=== PATIENT | female | born 1960 | race Caucasian/White ===

== ENCOUNTER 2018-12-06 16:45 | Inpatient (IN) ==
[2018-12-06 17:14] LABS: BASO# 0.05 X1000 (0.0-0.2); BASO% 0.6 % (0.0-0.8); EOS# 0.17 X1000 (0.0-0.7); EOS% 2.2 % (0.0-10.0); HEMATOCRIT 39.6 % (37.0-47.0); HEMOGLOBIN 13.3 g/dL (12.0-16.0); IMM GRAN# 0.02 X1000 (0.0-0.04); IMM GRAN% 0.3 % (0.0-0.5); LYMPH# 1.83 X1000 (1.2-3.4); LYMPH% 23.6 % (20.5-51.1); MCH 30.5 PG (27-31); MCHC 33.6 g/dL (33-37); MCV 90.8 FL (81-99); MONO# 0.58 X1000 (0.11-0.59); MONO% 7.5 % (1.7-9.3); MPV 9.6 FL (7.4-10.4); NEUT# 5.09 X1000 (1.4-6.5); NEUT% 65.8 % (42.2-75.2); PLT 184 X1000 (130-400); RBC 4.36 XMIL (4.2-5.4); RDW 13.2 % (11.5-14.5); WBC 7.74 X1000 (4.8-10.8)
[2018-12-06 17:22] LABS: INR 0.91; PROTIME 12.4 Seconds (11.0-16.0); PTT 27.3 Seconds (22.3-41.8)
--- NOTE | 2018-12-06 17:29 | ED EKG INTERP ---
This chart was entered by Jaki Simmons Scribe, acting as scribe for Kolby Vaughan MD. EKG Interpretation - EKG Time of EKG reading by physician:: 17:19 EKG Read and Signed by:: Kolby Vaughan EKG Interpretation (*Must complete 3 of following elements*): Abnormal Rate: 67 Rhythm: NSR [place]: normal QRS: normal [place] Interval: normal ST Wave: non-specific ST changes Comments: Artifact present. -Dr. Vaughan Attestation - Physician/ SABA Attestation Patient care was provided by Advanced Practice Provider:: No The physician spent face to face time with patient:: No Advanced Practice Provider documentation review:: Supervising physician onsite and consulted in the evaluation and care of this patient. The physician did not have a face to face encounter with the patient. This chart was documented by the indicated scribe, (Jaki Simmons Scribe) and accurately reflects the services I performed and decisions made by Clement so Kent A., MD, as attested by the provider's signature.
[2018-12-06 17:31] LABS: URINE SOURCE CLEAN CATCH
[2018-12-06 17:33] LABS: AGAP 11; ALB/GLOB RATIO 1.7; ALBUMIN 4.4 g/dL (3.5-5.0); ALKALINE PHOSPHATASE 99 U/L (32-104); AMYLASE 51 U/L (20-200); BUN 15 mg/dL (8-22); CALCIUM 9.5 mg/dL (8.8-10.2); CHLORIDE 103 mmol/L (98-107); COSMO 286; CREATININE 0.8 mg/dL (0.5-0.9); ESTIMATED GFR > 60; GLUCOSE 105 mg/dL (70-104); GOT 26 U/L (10-30); GPT 27 U/L (10-36); LIPASE 42 U/L (13-60); POTASSIUM 3.8 mmol/L (3.5-5.1); SODIUM 143 mmol/L (136-145); TCO2 29 mmol/L (25-35); TOTAL BILIRUBIN 0.95 mg/dL (0.20-1.00)
[2018-12-06 17:35] LABS: BILIRUBIN URINE NEGATIVE (NEGATIVE); BLOOD URINE MODERATE (NEGATIVE); COLOR YELLOW; GLUCOSE URINE NEGATIVE (NEGATIVE); KETONE URINE NEGATIVE (NEGATIVE); LEUKOCYTES URINE SMALL (NEGATIVE); NITRITE URINE NEGATIVE (NEGATIVE); PH URINE 5.5; PROTEIN URINE NEGATIVE (NEGATIVE); SP GRAVITY URINE 1.018; TURBIDITY URINE CLEAR (CLEAR); UROBILINOGEN URINE NORMAL (NORMAL)
[2018-12-06 17:36] LABS: UR EPITHELIAL CELLS <10 /HPF (<10); URINE BACTERIA NEGATIVE /HPF; URINE WBC <10 /HPF (<10)
[2018-12-06 17:47] LABS: UR AMPHETAMINES QUAL NONE DETECTED (NONE DETECT); UR BARBITUATES QUAL NONE DETECTED (NONE DETECT); UR BENZODIAZEPIN QUAL NONE DETECTED (NONE DETECT); UR CANNABINOIDS QUAL NONE DETECTED (NONE DETECT); UR COCAINE QUAL NONE DETECTED (NONE DETECT); UR METHADONE QUAL NONE DETECTED (NONE DETECT); UR OPIATES QUAL NONE DETECTED (NONE DETECT); UR OXYCODONE QUAL NONE DETECTED (NONE DETECT); UR PCP QUAL NONE DETECTED (NONE DETECT)
--- NOTE | 2018-12-06 18:25 | EKG Report ---
Test Performed on : 12/06/2018 5:02:16 PM Test Reason : NUMBNESS Blood Pressure : / mmHG Vent. Rate : 067 BPM Atrial Rate : 067 BPM P-R Int : 148 ms QRS Dur : 084 ms QT Int : 404 ms P-R-T Axes : 035 019 063 degrees QTc Int : 426 ms Normal sinus rhythm. Nonspecific T wave abnormality Abnormal ECG When compared with ECG of 21-APR-2015 08:29, Nonspecific T wave abnormality now evident in Inferior leads Unconfirmed Result
--- NOTE | 2018-12-06 19:57 | Diag Imaging Result Doc PS360 ---
EXAM: CT HEAD W/O CONTRAST - 12/06/2018 HISTORY: NUMBNESS TECHNIQUE: CT head without contrast COMPARISON: 10/04/2013 FINDINGS: There is no evidence of intracranial hemorrhage, mass effect, midline shift, or hydrocephalus. There is no evidence of infarct, although acute infarcts may not be immediately visible. There is no evidence of skull fracture. Visualized portions of paranasal sinuses and mastoid air cells appear clear. IMPRESSION: No visible acute intracranial abnormality. No hemorrhage or mass effect. This exam was performed using automated exposure control, adjustment of mA or kV according to patient size, and/or use of iterative reconstruction technique. Electronically signed by Adama Peña 12/06/2018 7:54 PM
[2018-12-06] MEDS ORDERED: CATAPRES PO ONE (20:01)
--- NOTE | 2018-12-06 20:31 | PROVIDER DOCUMENTATION ---
This chart was entered by Regina Turcios Scribe, acting as scribe for Be Henry MD. HPI-Neurological Disorder - General Chief Complaint: Numbness Stated Complaint: TONGUE,LIP NUMB,HEAD TIGHTNESS Time Seen by Provider: 12/06/18 17:28 Source: patient Allergies/Adverse Reactions: Patient Allergies Allergy/AdvReac Type Severity Reaction Status Date / Time amoxicillin trihydrate * AdvReac DIARRHEA Verified 12/06/18 20:01 [From Augmentin] fluticasone furoate AdvReac DRY MOUTH Verified 12/06/18 20:02 [From Breo Ellipta] hydrocodone AdvReac NAUSEA/VOMI Verified 12/06/18 20:01 TING phentermine HCl * AdvReac Unknown Verified 12/06/18 20:01 [From Adipex-P] potassium clavulanate * AdvReac DIARRHEA Verified 12/06/18 20:01 [From Augmentin] vilanterol AdvReac DRY MOUTH Verified 12/06/18 20:02 [From Breo Ellipta] Home Medications: Home Medication List Medication Instructions Recorded Confirmed Last Taken Type Aspirin/Acetaminophen/Caffeine 1 tab PO DAILY 10/04/13 10/04/13 10/03/13 21:00 History [Excedrin Migraine] Clonidine HCl 0.1 mg PO QHS 10/04/13 10/04/13 10/03/13 21:00 History Clopidogrel [Plavix] 75 mg PO DAILY 10/04/13 10/04/13 10/03/13 21:00 History Ibuprofen 800 mg PO TID PRN 10/04/13 10/04/13 10/03/13 21:00 History Losartan/Hydrochlorothiazide 1 tab PO DAILY 10/04/13 10/04/13 10/03/13 21:00 History [Losartan-Hctz 50-12.5 mg Tab] Metoprolol [Lopressor] 50 mg PO DAILY 10/04/13 10/04/13 10/03/13 21:00 History Sumatriptan Succinate 25 mg PO DAILY 10/04/13 10/04/13 10/03/13 21:00 History Albuterol Sulfate Inhaler 2 puff INH Q6H PRN PRN #1 inhaler 05/01/18 Unknown Rx [Ventolin Hfa] Azithromycin 250 mg PO DAILY #11 tab 05/01/18 Unknown Rx - History of Present Illness-Neuro Nature of Presenting Problem: 58 yof c/o head tingling, LE weakness, left LE numbness, left arm tingling, lip numbness, tight jaw left side. pt sts felt "groggy" this am, ate lunch and around [id number] everything got "bright," but head didn't hurt. pt sts head is tingling. pt has hx of mini strokes x 3, pt sts last mini stroke, has speech problems. pt has hx of migraines rt sided, htn, copd and kidney problems. pt nonsmoker. pt denies seizure and loc. pt has allergy to hydrocodone, augmenton, phentermine and cigarette smoke. Review of Systems - Adult - REVIEW OF SYSTEMS - ADULT Constitutional: reports: no symptoms reported. denies: fever, fatique, night sweats Eyes: reports: no symptoms reported. denies: decreased vision, blurred vision, double vision Ears, Nose, Mouth & Throat: reports: no symptoms reported Cardiovascular: reports: no symptoms reported Respiratory: reports: no symptoms reported Gastrointestinal: reports: no symptoms reported Genitourinary: reports: no symptoms reported Musculoskeletal: reports: see HPI, muscle weakness (bilat leg weakness). denies: back pain, joint pain, neck pain Integumentary: reports: no symptoms reported Neurological: reports: see HPI, numbness (left le numb,), paresthesia, other (left arm tingling). denies: dizziness/vertigo, headache/migraines, loss of balance, slurred speech, syncope Psychiatric: reports: no symptoms reported Endocrine: reports: no symptoms reported Hematologic/Lymphatic: reports: no symptoms reported Allergic/Immunologic: reports: no symptoms reported All Other Systems: Reviewed and Negative Past History - Adult - PAST MEDICAL HISTORY-ADULT Review of Records: reports: Old Records Reviewed, Nursing Assessment Review, Medications Reviewed, Social history reviewed & non-contributory. Major Childhood Illnesses: reports: denies history Cardiovascular: reports: HTN, hyperlipidemia Respiratory: reports: COPD Gastrointestinal: reports: GERD Obstetrical/Gynecological: reports: denies history Genitourinary: reports: denies history Musculoskeletal: reports: denies history Neurological: reports: TIA Endocrine/Immune: reports: Diabetes Other Conditions: reports: denies history - PRIOR SURGERIES/PROCEDURES Surgical/Procedure History: reports: appendectomy, BTL - IMMUNIZATION STATUS Childhood Immunizations: See Nurse Assessment Flu Vaccine: See Nurse Assessment - FAMILY HISTORY Family History: reviewed, not pertinent - SOCIAL HISTORY Smoking: non-smoker Substance Use: none/never Physical Exam- Neurological - Physical Exam-Neuro Initial Vital Signs Reviewed: Yes General Appearance: appears well, alert, no apparent distress, obese. negative: lethargic, slow to respond, obtunded Eye Exam: bilateral eye: normal inspection, PERRL, EOMI HENMT: normocephalic/atraumatic, moist mucous membranes, normal ENT inspection Head Injury: no evidence of injury. negative: ecchymosis, flap, lacerations Neck: non-tender, full range of motion, supple, normal inspection Respiratory: chest non-tender, lungs clear, normal breath sounds Cardiovascular: normal peripheral pulses, regular rate, rhythm, no edema, no gallop, no JVD, no murmur, other (pt bp 162/124 in er). negative: JVD, bradycardia, tachycardia Abdominal Exam: normal bowel sounds, non tender, soft Lymphatic: no adenopathy Peripheral Pulses: radial (R): 2+, radial (L): 2+ Extremity: normal range of motion, non-tender, normal inspection bread and pastry baker Exam: normal hearing, normal speech, PERRL. negative: abnormal eye position, facial asymmetry, facial droop, facial paresthesias, facial weakness Motor/Sensory: no motor deficit, no pronator drift, sensory deficit. negative: no sensory deficit, pronator drift (R), pronator drift (L), weak motor strength RLE, weak motor strength LLE Neurologic: bread and pastry baker II-XII nml as tested, grossly normal, sensory deficit. negative: no motor/sensory deficits, aphasia, EOM palsy, facial droop, focal weakness, motor weakness Integumentary: normal color, normal turgor, warm/dry Psych/Mental Status: normal mood/affect, normal thought content, normal thought process, oriented x 3 - Glascow Coma Scale Best Eye Response: (4) open spontaneously Best Verbal Response: (5) oriented Best Motor Response: (6) obeys commands Total Glascow Score: 15 Progress - PLAN OF CARE/RESULTS Progress/Plan/Lab Results: Vital Signs - 8 hr 12/06/18 16:53 12/06/18 19:00 12/06/18 19:03 Temperature 97.8 F Pulse Rate 71 Respiratory Rate 18 Blood Pressure 142/105 180/98 162/113 O2 Sat by Pulse Oximetry 98 99 99 Laboratory Results - last 24 hr 12/06/18 12/06/18 12/06/18 17:02 17:02 17:02 WBC 7.74 RBC 4.36 Hgb 13.3 Hct 39.6 MCV 90.8 MCH 30.5 MCHC 33.6 RDW Std Deviation 13.2 Plt Count 184 MPV 9.6 Immature Gran % (Auto) 0.3 Neut % (Auto) 65.8 Lymph % (Auto) 23.6 [place] % (Auto) 7.5 Eos % (Auto) 2.2 Baso % (Auto) 0.6 Immature Gran # (Auto) 0.02 Neut # (Auto) 5.09 Lymph # (Auto) 1.83 [place] # (Auto) 0.58 Eos # (Auto) 0.17 Baso # (Auto) 0.05 PT 12.4 INR 0.91 PTT (Actin FS) 27.3 Sodium 143 Potassium 3.8 Chloride 103 Carbon Dioxide 29 Anion Gap 11 BUN 15 Creatinine 0.8 Estimated GFR/1.73 m2 > 60 BUN/Creatinine Ratio 19 Glucose 105 H POC Glucose Calculated Osmolality 286 Calcium 9.5 Total Bilirubin 0.95 AST 26 ALT 27 Alkaline Phosphatase 99 Total Protein 7.0 Albumin 4.4 Globulin 2.6 Albumin/Globulin Ratio 1.7 Amylase 51 Lipase 42 Urine Source Urine Color Urine Turbidity Urine pH Ur Specific [place] Urine Protein Ur Glucose (Stick) Ur Ketones (Stick) Urine Blood Urine Nitrite Urine Bilirubin Urobilinogen Dipstick Urine Leukocytes Urine WBC (Auto) Urine RBC (Auto) U Epithel Cells (Auto) Urine Bacteria (Auto) Urine Opiates Screen Ur Oxycodone Screen Ur Methadone, Qual Ur Barbiturates Screen Ur Phencyclidine Scrn Ur Amphetamines Screen U Benzodiazepines Scrn Urine Cocaine Screen U Cannabinoids Screen 12/06/18 12/06/18 12/06/18 17:05 17:05 17:07 WBC RBC Hgb Hct MCV MCH MCHC RDW Std Deviation Plt Count MPV Immature Gran % (Auto) Neut % (Auto) Lymph % (Auto) [place] % (Auto) Eos % (Auto) Baso % (Auto) Immature Gran # (Auto) Neut # (Auto) Lymph # (Auto) [place] # (Auto) Eos # (Auto) Baso # (Auto) PT INR PTT (Actin FS) Sodium Potassium Chloride Carbon Dioxide Anion Gap BUN Creatinine Estimated GFR/1.73 m2 BUN/Creatinine Ratio Glucose POC Glucose 105 H Calculated Osmolality Calcium Total Bilirubin AST ALT Alkaline Phosphatase Total Protein Albumin Globulin Albumin/Globulin Ratio Amylase Lipase Urine Source CLEAN CATCH Urine Color YELLOW Urine Turbidity CLEAR Urine pH 5.5 Ur Specific [place] 1.018 Urine Protein NEGATIVE Ur Glucose (Stick) NEGATIVE Ur Ketones (Stick) NEGATIVE Urine Blood MODERATE A Urine Nitrite NEGATIVE Urine Bilirubin NEGATIVE Urobilinogen Dipstick NORMAL Urine Leukocytes SMALL A Urine WBC (Auto) <10 Urine RBC (Auto) 10-20 A U Epithel Cells (Auto) <10 Urine Bacteria (Auto) NEGATIVE Urine Opiates Screen NONE DETECTED Ur Oxycodone Screen NONE DETECTED Ur Methadone, Qual NONE DETECTED Ur Barbiturates Screen NONE DETECTED Ur Phencyclidine Scrn NONE DETECTED Ur Amphetamines Screen NONE DETECTED U Benzodiazepines Scrn NONE DETECTED Urine Cocaine Screen NONE DETECTED U Cannabinoids Screen NONE DETECTED Orders Category Date Time Status CT HEAD W/O CONTRAST [CT] Stat Exams 12/06/18 17:03 Completed AMYLASE [CHEM] Stat Lab 12/06/18 17:02 Completed CBC WITH DIFF [HEME] Stat Lab 12/06/18 17:02 Completed COMPREHENSIVE METABOLIC PANEL [CHEM] Stat Lab 12/06/18 17:02 Completed LIPASE [CHEM] Stat Lab 12/06/18 17:02 Completed PROTIME WITH INR [COAG] Stat Lab 12/06/18 17:02 Completed PTT [COAG] Stat Lab 12/06/18 17:02 Completed URINALYSIS W/POSS RFLX CULT [URINALYSIS] Stat Lab 12/06/18 17:05 Completed URINE CULTURE [RM] Routine Lab 12/06/18 18:22 Received URINE DRUG SCREEN Stat Lab 12/06/18 17:05 Completed Clonidine [Catapres] Med 12/06/18 20:01 Discontinued 0.1 mg PO NOW ONE EKG [EKG] Stat Ther 12/06/18 17:05 Draft Result Diagrams: 12/06/18 17:02 12/06/18 17:02 - CT/MRI 1 CT Study: Head Impression: Normal, See EMR Report Impression: Normal ([facility] - [address], [address], [place] [address] [facility] - [address] [place] [address] Department of Imaging Patient: WENDY VERDE Date: 12/06/18#: [id number] : 2ADM Status: PRE ERAt#: [id number] Age/Sex: 58/FRoom/Bed: Loc: ED Ordering Physician: Kolby Vaughan MD Family Physician: Sami Smith Reason for Procedure: NUMBNESS Signed EXAM: CT HEAD W/O CONTRAST - 12/06/2018 HISTORY: NUMBNESS TECHNIQUE: CT head without contrast COMPARISON: 10/04/2013 FINDINGS: There is no evidence of intracranial hemorrhage, mass effect, midline shift, or hydrocephalus. There is no evidence of infarct, although acute infarcts may not be immediately visible. There is no evidence of skull fracture. Visualized portions of paranasal sinuses and mastoid air cells appear clear. IMPRESSION: No visible acute intracranial abnormality. No hemorrhage or mass effect. This exam was performed using automated exposure control, adjustment of mA or kV according to patient size, and/or use of iterative reconstruction technique. Electronically signed by Adama Peña 12/06/2018 7:54 PM 12/06/181953 Interpreting Physician: Adama Peña MD Dictated Date/Time: 12/06/181951 cc: Kolby Vaughan MD; Sami Smith) - CONSULTS/PCP/HOSPITALIST Notification #1 *Consult/PCP/Hospitalist*: Dr. Britton Hospitalist Time Discussed: 20:40 Consult Disposition: Admit Departure - Departure Date of Disposition Decision: 12/06/18 Time of Disposition Decision: 20:28 DIAGNOSIS: TIA (transient ischemic attack), HTN (hypertension) Disposition: ADMITTED INPATIENT 09 Certified Medical Emergency: Emergent Condition: Fair Referrals and Follow-Ups: Sami Smith [Primary Care Provider] - - Critical Care Note This patient required my direct & personal management of CC.: No Attestation - Physician/ SABA Attestation Patient care was provided by Advanced Practice Provider:: No The physician spent face to face time with patient:: Yes Advanced Practice Provider documentation review:: Supervising physician onsite and consulted in the evaluation and care of this patient. The physician did have a face to face encounter with the patient. This chart was documented by the indicated scribe, (Regina Turcios Scribe) and accurately reflects the services I performed and decisions made by me, Be Henry MD, as attested by the provider's signature.
[2018-12-07] MEDS ORDERED: ASPIRIN PO ONE (00:18)
[2018-12-07] MEDS ORDERED: ZOFRAN IV PRN (01:43)
[2018-12-07] MEDS ORDERED: TYLENOL PO PRN (01:45)
--- NOTE | 2018-12-07 05:30 | HISTORY AND PHYSICAL ---
PRIMARY CARE PROVIDER: Dr. Sami Smith. DATE AND TIME: 12/06/2018 at 2250. CHIEF COMPLAINT: Stroke-like symptoms. HISTORY OF PRESENT ILLNESS: Ms Child is a 58-year-old female with a past medical history most notable for history of 3 previous TIAs, with some residual deficits of occasional dysphasia for which she reports she has occasional difficulty finding her words. She also has a history of hypertension, hyperlipidemia, and migraine. The patient reports that at approximately 12:30 p.m. on 12/06/2018, that she began having some stroke-like symptoms, which she described initially started off as some lip, tongue, and gums numbness. She also felt a tightness type feeling in the bilateral corners of her mouth. She states she did have some blurry vision and had what sounds to be like tunnel vision, stating things seemed very far away. She also reported that she felt as though she was foggy and not thinking straight. She reports that she was actually trying to type at the time and was having difficulty typing. She also reported that she felt like her legs felt like jelly from bilateral knees down. She also reported some left foot numbness. She denied having a headache, though did feel like she had pressure on the top of her head radiating down the back of her head to the occipital area. The patient states that these symptoms continued. She did present to the ER, and since arriving to the ER though, they have not completely resolved, she states she still has some blurry vision and is still having some numbness in her left foot, though admits her other symptoms are better. At this time, she denies any headache, dizziness, She denies any chest pain, shortness of breath, or cough. She did report that she had some left lower quadrant pain earlier in the day and did have 3 episodes of diarrhea, though she denied any nausea or vomiting. The patient states that she occasionally does have some bright red blood in her stools, though this has been present for quite some time and is not of new onset. She does have a history of hemorrhoids as well. She denies any dysuria or urinary frequency or low back pain. Other than her left foot numbness, she denies any other pain, numbness, tingling, or swelling in the extremities. Upon evaluation in the ER, laboratory results were pretty unremarkable. Fingerstick blood sugar was 105. CK and troponin were within normal limits. Electrolytes were within normal limits as well. She did have some blood as well as small amount of leukocytes noted in her urine. The patient is asymptomatic at this time. Urine drug screen was negative. EKG showed normal sinus rhythm at a rate of 67, with a QTc of [address] of the head without contrast showed no visible acute intracranial abnormality. There is no hemorrhage or mass effect present. At this time, the patient will be admitted for further treatment and evaluation of TIA versus CVA. REVIEW OF SYSTEMS: A 14-point review of systems was conducted with the patient and all were negative, except pertinent positives mentioned above in HPI. PAST MEDICAL HISTORY: 1. History of 3 previous TIAs for which she does report she has a residual deficit of some occasional dysphasia, for which she reports she has difficulty finding her words at times. 2. Migraines. 3. COPD. 4. Gastroesophageal reflux disease. 5. Hyperlipidemia. 6. Hypertension. 7. History of kidney stones. 8. History of endometriosis. 9. Depression. 10. History of hemorrhoids. 11. Arthritis in the right knee. PAST SURGICAL HISTORY: 1. Appendectomy. 2. Tubal ligation. 3. Pelvic surgery for evaluation of endometriosis. SOCIAL HISTORY: The patient denies any tobacco, alcohol or illicit drug use. She does report that she was around secondhand smoke. Her mother was a heavy smoker. FAMILY HISTORY: Positive for her Mother having COPD and was a heavy smoker. She also had hypertension and in 2017. Her Father had a history of hypertension and in 2002. Her brother has a history of migraines and hypertension. ALLERGIES: The patient reports allergies of Augmentin, Breo Ellipta, hydrocodone, and Adipex. HOME MEDICATIONS: We are waiting for the patient's home medication list to be updated and verified. Once done, we will continue her appropriate medications. DIAGNOSTIC DATA/LABORATORY RESULTS: White blood cell count is 7740, hemoglobin 13.3, hematocrit 39.6, platelet count is 184,000. PT 12.4, INR 0.91, PTT is 27.3. Sodium 143, potassium 3.8, chloride 103, serum bicarbonate is 29, BUN 15, creatinine 0.8. With GFR greater than 60, glucose 105, calcium 9.5, magnesium 2. Liver function tests within normal limits. CK 81, troponin less than 0.01, amylase 51, lipase 42. Urine drug screen was negative. Urinalysis was obtained via clean catch, was positive for moderate blood, small leukocytes, though is negative for protein, glucose, ketones, nitrites, had less than 10 white blood cells, and epithelial cells, and was negative for bacteria. EKG showed normal sinus rhythm at a rate of 67 with a QTc of [address] of the head without contrast showed no evidence of intracranial hemorrhage, mass effect, midline shift, or hydrocephalus. There was no evidence of infarct, although acute infarcts may not be immediately visible. There was no evidence of skull fracture. There is no visible acute intracranial abnormality. PHYSICAL EXAMINATION: VITAL SIGNS: Temperature 97.8 degrees, heart rate 75, respirations 18, blood pressure 146/66, oxygen saturation is 96% on room air. GENERAL: Ms. Child is a pleasant 58-year-old female. She was resting in the ER stretcher. She was in no acute distress. She was awake, alert, and able to answer questions appropriately. HEENT: Head is atraumatic, normocephalic. Pupils are equal, round, reactive to light, were 3 mm bilaterally and brisk. EOMs were intact. Oral mucosa was moist. Oropharynx was clear. NECK: Supple. Trachea midline. CARDIOVASCULAR: Patient has S1, S2 present. No murmurs, gallops, rubs appreciated with a regular rate and rhythm. PULMONARY: The patient has symmetrical chest expansion bilaterally. Lung sounds are clear to auscultation in bilateral full juares. ABDOMEN: Soft, nondistended, nontender. Bowel sounds are present in all 4 quadrants, were normoactive. EXTREMITIES: No cyanosis or edema noted. Pulse, motor, and sensory were intact in all extremities, though the patient was reporting some numbness in her left foot. She denied any differences in sensation from her left to her right foot. Radial and pedal pulses were 2+ bilaterally. INTEGUMENTARY: The patient's skin is pink, warm, and dry. NEUROLOGICAL: The patient is alert and oriented to person, place, time, and situation. She had equal muscle strength bilaterally, equal hand grasps bilaterally. She had no arm drift noted. EOMs and visual juares were intact. Pupils are equal, round, reactive to light, were 3 mm bilaterally and brisk. Though she was reporting still having some blurry vision, visual juares were intact as well. She was reporting still the feeling of some numbness in her left foot. ASSESSMENT AND PLAN: 1. Transient ischemic attack versus cerebrovascular accident. For further evaluation of this, we will continue with an MRI with and without contrast in the morning as well as an echocardiogram, and ultrasound of carotid arteries. We will repeat a CBC and BMP in the morning. We will do frequent vital signs, cardiac telemetry. We will also do q.4 hours neuro checks. The patient will be given a 325 mg aspirin tonight. We will continue with 81 mg p.o. aspirin daily. The patient reports that she does take Plavix, once her home medications have been reconciled we will continue this as well. We have placed a consult with Dr. Ambrosio with Neurology and we will await his evaluation and further recommendations for management. 2. History of hypertension. We are awaiting the patient's blood pressure medications to be reconciled, though at this time, given her symptoms and possibility of stroke, we will for allow some permissive hypertension. We will do q.4 hours vital signs and treat her blood pressure if it becomes greater than 180 systolically. 3. History of hyperlipidemia. The patient reports that she does take medication for this. We are awaiting her medication list to be reconciled, once done so we will continue her regularly prescribed medicines. 4. Deep vein thrombosis prophylaxis. We will provide her with sequential compression devices. She has been placed on the medical floor with telemetry. We will do vital signs and neurological checks q.4 hours. She did have some leukocytes noted in her urine. The patient is asymptomatic at this time, we have ordered a urine culture. We are awaiting those results and continue to follow. Further orders and recommendations pending hospital course, diagnostic studies, and physician evaluation. Dictated by VIRI Ambrosio for Deejay Britton MD I have performed a face to face diagnostic evaluation. Labs/ Imaging - reviewed. Exam- Neuro- speech intact A/P- Suspected TIA r/o CVA- Admit, stroke work up. Neurology consult. Dr. Britton cc: MD Sami Marte MD [facility]
[2018-12-07] MEDS ORDERED: ASPIRIN ONE (06:24)
[2018-12-07 08:18] LABS: BASO# 0.05 X1000 (0.0-0.2); BASO% 0.8 % (0.0-0.8); EOS# 0.18 X1000 (0.0-0.7); HEMATOCRIT 40.4 % (37.0-47.0); HEMOGLOBIN 13.4 g/dL (12.0-16.0); LYMPH# 1.41 X1000 (1.2-3.4); LYMPH% 23.7 % (20.5-51.1); MCH 30.3 PG (27-31); MCHC 33.2 g/dL (33-37); MCV 91.4 FL (81-99); MONO# 0.44 X1000 (0.11-0.59); MONO% 7.4 % (1.7-9.3); MPV 9.8 FL (7.4-10.4); NEUT# 3.88 X1000 (1.4-6.5); NEUT% 65.1 % (42.2-75.2); PLT 169 X1000 (130-400); RBC 4.42 XMIL (4.2-5.4); RDW 13.3 % (11.5-14.5); WBC 5.96 X1000 (4.8-10.8)
[2018-12-07 08:38] LABS: AGAP 10; BUN 13 mg/dL (8-22); CALCIUM 9.5 mg/dL (8.8-10.2); CHLORIDE 105 mmol/L (98-107); COSMO 285; CREATININE 0.7 mg/dL (0.5-0.9); ESTIMATED GFR > 60; GLUCOSE 94 mg/dL (70-104); SODIUM 143 mmol/L (136-145); TCO2 28 mmol/L (25-35)
--- NOTE | 2018-12-07 11:20 | CONSULTATION ---
DATE OF CONSULTATION: 12/07/2018 HISTORY OF PRESENT ILLNESS: Ms. Child is a young woman with history of episodic headache diagnosed as migraine. She reports onset of headaches at age 16. Headache is typically bifrontal initially and then at the vertex and then posterior global aching "like my head will explode" for 2-3 days per episode. Headaches are associated with nausea, occasional vomiting, prominent photophobia and phonophobia. In the past, she has had headaches associated with transient right facial numbness, possibly right facial drooping, brief dysarthria. At least once, she had an episode of inability to speak for a short time with some other features typical for her migraine then, but she did not have headache with that episode. Recently, she reports intense 3-day headache averaging once a month. She takes Excedrin approximately every other day with a sense that she can feel headache coming on. She believes Excedrin is effective at postponing headache. She took a medicine that might have been sumatriptan in the past and that caused some adverse effects in her throat. She does not recall taking other triptans. She took topiramate at uncertain dose for possibly a few months when she was in her 40s. She stopped that because of reported personality change. She does not recall noticing any headache benefit with topiramate. She does not recall taking any other medication daily specifically for management of headache. She had menopause and there was no change in headache during or after menopause. She has never taken female hormone replacement. Caffeine intake is Excedrin every other day as above, plus a cup of coffee a few days a week and a cola a few days per week. There is family history of headache in her father, brother, 2 children. There is reported past history of hypertension, dyslipidemia. Previous workup has all been unremarkable. She had noncontrast CT on presentation here showing nothing remarkable. Our computer record shows brain MRI 10/02/2013 showed minimal micro-ischemic change and nothing else remarkable. She felt one of her typical mild headaches yesterday morning and took Excedrin. Shortly after lunch, she noticed a sense of numbness around the mouth, gums and tongue bilaterally. She does not recall speech disturbance. There was no chewing or swallowing trouble. When she stood, her legs felt heavy. She drove herself home and then noticed numbness in the left foot. Other than the left foot symptoms, there was not a focal feature to this episode. She did not have immediate headache but she did develop one of her typical migraine headaches overnight. She has been afebrile. Heart rate has ranged 60s to 70s. Systolic blood pressures have ranged 140s to 180s. PHYSICAL EXAMINATION: On exam, she is awake, alert, attentive, oriented. She answered questions appropriately. Recent and remote memory are good. Speech is not dysarthric. Language function is intact on careful bedside testing. Head and neck are unremarkable. There is no meningismus. Visual juares are full tested by confrontational finger counting. Extraocular movements are full. Pupils react to light. Facial motility is symmetric. Facial sensation is intact to careful pinprick and light touch testing around the mouth bilaterally. Gag is intact. Tongue is midline. Palate is midline. Hearing is good. Shoulder shrug is equal. Strength is normal in the arms and legs. Limb tone is symmetric. She did well on [id number] testing bilaterally. Sensation is intact to pinprick testing over the hands. I did not test her gait. IMPRESSION: There is history of episodic headache typical of migraine with usual family history noted. She has had some transient neurologic deficits attributed to migraine in the past. The episode yesterday was mostly global with minimal focal feature. This was followed by one of her typical headaches. I do not see evidence of increased intracranial pressure, infarction, seizure, or other [employer] event. I would attribute this to migraine. She has MRI ordered and, if that is unremarkable, I do not think we will need anything further from neurologic standpoint. We discussed potential explanations for frequent headache, including elevated blood pressure, caffeine effects, female hormone effects. We discussed potential for development of analgesic rebound/medication overuse headache syndrome with frequent use of Excedrin or any other abortive agent. We discussed prophylactic and abortive management of headache at some length. Since she did not tolerate topiramate and she is postmenopausal, divalproex might be considered. We discussed migraine as a potential risk factor for stroke in an overweight middle-aged woman with history of hypertension and dyslipidemia and with history of neurologic deficit associated with migraine. I encouraged her to be aggressive with management of all of her risk factors. Thanks for asking Neurology to see Ms. Child. I will be glad to see her again, if needed. cc: MD MELISSA Vásquez III
--- NOTE | 2018-12-07 11:40 | Diag Imaging Result Doc PS360 ---
EXAM: MRI BRAIN W/WO CONTRAST 12/07/2018 HISTORY: TIA vs. CVA TECHNIQUE: T1 sagittal, axial and post gadolinium-enhanced axial with coronal reformation, axial T2, FLAIR, DWI and coronal gradient echo. COMMENT: There is no evidence of mass effect, bleed, abnormal extra-axial fluid collection, or hydrocephalus. There is some anterior artifact presumably due to dental work which particularly affects the diffusion-weighted images. No evidence of restricted diffusion is present however. There is no evidence of abnormal gadolinium enhancement. IMPRESSION: Normal MRI of the brain. Electronically signed by Rahul Armstrong 12/07/2018 11:37 AM
[2018-12-07 13:47] LABS: CHOLESTEROL 139 mg/dL (0-200); HDL 55 mg/dL (45-65); LDL 64 mg/dL; TRIGLYCERIDES 98 mg/dL (35-135); VLDL 20 mg/dL
[2018-12-07 14:57] VITALS: BP 126/79
--- NOTE | 2018-12-07 15:28 | ECHO REPORT ---
ORDER DATE: 12/07/2018 INTERPRETING PHYSICIAN: Dr. Tevin Cunningham ECHOCARDIOGRAPHIC MEASUREMENTS: 1. Interventricular septum: 1.1 cm. 2. Posterior wall: 1.1 cm. 3. Diastolic diameter: 5.2 cm. 4. Left atrium: 3.6 cm. 5. Aortic root: 3.3 cm. SUMMARY OF THE 2-DIMENSIONAL IMAGIN. Mitral valve was normal. 2. Aortic valve leaflets are trileaflet. 3. Pulmonic valve was normal. There is trace pulmonary regurgitation. 4. There is mild mitral regurgitation. 5. Mild tricuspid regurgitation. Peak velocity across the tricuspid valve was 3.2 m/sec. 6. Pulmonary artery systolic pressure of 50 mmHg. 7. There is no aortic stenosis. There is mild aortic regurgitation. 8. Normal left ventricular cavity size. Mild asymmetric left ventricular hypertrophy. Estimated ejection fraction of 70%. There is diastolic dysfunction. 9. There is no pericardial effusion or obvious intracardiac mass or thrombus seen. cc: Tevin Cunningham MD
--- NOTE | 2018-12-07 20:47 | Carotid Study ---
DATE: 12/07/2018 REFERRING PROVIDER: The patient was sent by Lamonte Stevens. INTERPRETING PHYSICIAN: Cuong Rae MD HEEL SEAT FILLER: Fareed. INDICATIONS: The patient has had a TIA versus CVA. FINDINGS: Velocities are noted. No significant plaque is seen. The right internal common carotid artery shows 0.75, left 0.94. Percent stenosis is 0% to 39% on the right and 0% to 39% on the left. INTERPRETATION: No significant plaque disease was identified. There was antegrade vertebral flow bilaterally. cc: Cuong Rae MD [facility]
[2018-12-07] MEDS ORDERED: ASPIRIN PO SCH (21:00)
--- NOTE | 2018-12-08 06:39 | DISCHARGE SUMMARY ---
ADMISSION DATE: 12/06/2018 DISCHARGE DATE: 12/07/2018 DISCHARGE DIAGNOSES: 1. Transient ischemic attack. 2. Migraines. 3. Hypertension. 4. Hyperlipidemia. PROCEDURES: 1. Brain MRI show normal MRI of the brain. 2. Echocardiogram Doppler showed with ejection fraction of 70% with mild left ventricular hypertrophy. No pericardial effusion or obvious intracardiac mass or thrombus seen. CONSULTATIONS: Dr. Ambrosio from Neurology. HOSPITAL COURSE: This patient basically was admitted to the hospital for an episode of TIA. Actually she noticed some dysphagia and also she said that she had difficulty finding her words. That happened the date of admission and because of those symptoms she was admitted to the hospital. She said that those symptoms resolved after a few hours. MRI of the brain was ordered at admission. That exam returned normal. Considering that she had many episodes of TIAs, we added aspirin 81 mg to her current treatment with Plavix 75 mg p.o. daily. Also, Dr. Ambrosio from Neurology has been consulted. He had evaluated patient and considering history of migraines and recurrent TIAs, will be very beneficial to be seen by Neurology as an outpatient. At this point, she is being discharged in stable condition. DISCHARGE PHYSICAL EXAMINATION: Temperature 98.6 degrees, heart rate 79, respiratory rate 19, blood pressure 126/79, O2 saturation 99% on 2 L nasal cannula. General examination: This is a 58- year-old female lying in bed, in no acute distress. HEENT: Head is normocephalic, atraumatic. Neck: No JVD noted. No carotid bruits. No lymphadenopathy. No thyromegaly. Cardiovascular: S1, S2 heard. No murmurs, gallops, or rubs. Regular rate and rhythm. Respiratory: Clear bilaterally to auscultation. No work of breathing or using accessory muscles. Abdomen: Soft, nontender to palpation. Bowel sounds present. No organomegaly. Extremities: No clubbing, cyanosis, or edema. Peripheral pulses present in both legs. Neurological: The patient is alert and oriented x3. Moves 4 extremities. DISCHARGE DISPOSITION: Home to self-care. FOLLOWUP: Dr. Ambrosio in 2 to 3 weeks. DISCHARGE MEDICATIONS: 1. Aspirin 81 mg 1 tablet p.o. daily. 2. Plavix 75 mg 1 tablet p.o. daily. 3. Metoprolol 50 mg 1 tablet p.o. at bedtime. 4. Clonidine 0.1 mg 1 tablet p.o. at bedtime. 5. Albuterol inhaler 2 puffs every 6 hours as needed for pain. 6. Omeprazole 20 mg 1 tablet p.o. at bedtime. 7. Lipitor 20 mg 1 tablet p.o. at bedtime. 8. Lisinopril 20, hydrochlorothiazide 12.5 mg 1 tablet p.o. at bedtime. cc: Sajan Hall MD MTDD
== END 2018-12-07 14:57 | disposition home or self-care (01) | DRG 69 ==
LOC: ED 16:45 → SUATTDRO 23:39 → 3N 23:39
PROVIDERS: ATTEND Internal Medicine